=== PATIENT | male | born 1960 | race Caucasian/White ===

== ENCOUNTER 2018-04-27 14:07 | Observation (INO) ==
[2018-04-27] MEDS ORDERED: ONDANSETRON 4 MG/2 ML VIAL IV PRN (16:07)
[2018-04-27] MEDS ORDERED: ACETAMINOPHEN 325 MG TABLET PO PRN (16:07)
[2018-04-27 17:00] LABS: Basophils % 0.4 % (0.0-0.8); Eosinophils # 0.3 10*3/uL (0.0-0.87); Eosinophils % 2.5 % (0.00-10.9); Hematocrit 46.5 VOL% (42.0-52.0); Hemoglobin 16.4 GM/DL (14.0-18.0); Immature Granulocytes % 0.4 %; Immature Granulocytes Absolute 0.04 #; Lymphocytes # 1.8 10*3/uL (1.4-4.0); Lymphocytes % 18.1 % (21.2-54.2); Mean Corpuscular HGB Conc 35.3 GM/DL (32-36); Mean Corpuscular Hemoglobin 32 PG (27-34); Mean Corpuscular Volume 91.7 FL (87-102); Monocytes # 0.7 10*3/uL (0.11-0.8); Monocytes % 6.7 % (1.7-12.7); Neutrophils # 7.1 10*3/uL (1.4-7.4); Neutrophils % 71.9 % (38.7-73.9); Platelet Count 225 T/CUMM (130-400); Red Blood Count 5.07 MC/CUMM (3.8-5.5); Red Cell Distribution Width 13.1 % (9.3-17.3); White Blood Count 9.9 T/CUMM (4-12)
[2018-04-27] MEDS: RIVAROXABAN 20 MG TABLET PO SCH (17:22)
[2018-04-27] MEDS: methylPREDNISolone SOD SUC 125 MG/2 ML VIAL IV SCH ×2 (17:23→22:30)
[2018-04-27 17:30] LABS: Albumin 3.9 G/DL (3.4-5.0); Bilirubin,Total 0.9 MG/DL (0.2-1.0); Calcium 9.4 MG/DL (8.5-10.1); Osmolality,Calculated 281.3 MOS/KG (273-304); Potassium 4.5 MMOL/L (3.5-5.1); Total Protein 7.8 G/DL (6.4-8.3)
[2018-04-27] MEDS ORDERED: ALBUTEROL 2.5 MG/3 ML NEB RESP TX SCH (19:00)
[2018-04-27] MEDS: LEVALBUTEROL 1.25 MG/3 ML NEB RESP TX SCH (19:22)
[2018-04-27] MEDS ORDERED: MONTELUKAST 10 MG TABLET PO SCH (21:00)
[2018-04-28] MEDS: LEVALBUTEROL 1.25 MG/3 ML NEB RESP TX SCH ×2 (00:58→07:21)
[2018-04-28] MEDS: methylPREDNISolone SOD SUC 125 MG/2 ML VIAL IV SCH ×2 (05:20→10:00)
[2018-04-28 06:35] LABS: Basophils % 0.3 % (0.0-0.8); Hematocrit 46.5 VOL% (42.0-52.0); Hemoglobin 16.1 GM/DL (14.0-18.0); Immature Granulocytes % 0.8 %; Immature Granulocytes Absolute 0.06 #; Lymphocytes # 0.9 10*3/uL (1.4-4.0); Lymphocytes % 11.8 % (21.2-54.2); Mean Corpuscular HGB Conc 34.6 GM/DL (32-36); Mean Corpuscular Hemoglobin 32 PG (27-34); Mean Corpuscular Volume 91.7 FL (87-102); Mean Platelet Volume 9.1 FL (9.6-12.0); Monocytes # 0.1 10*3/uL (0.11-0.8); Monocytes % 0.9 % (1.7-12.7); Neutrophils # 6.5 10*3/uL (1.4-7.4); Neutrophils % 86.2 % (38.7-73.9); Platelet Count 234 T/CUMM (130-400); Red Blood Count 5.07 MC/CUMM (3.8-5.5); Red Cell Distribution Width 13.3 % (9.3-17.3); White Blood Count 7.5 T/CUMM (4-12)
[2018-04-28 07:02] LABS: Albumin 3.8 G/DL (3.4-5.0); Bilirubin,Total 1.1 MG/DL (0.2-1.0); Calcium 9.3 MG/DL (8.5-10.1); Osmolality,Calculated 279.7 MOS/KG (273-304); Potassium 3.9 MMOL/L (3.5-5.1); Thyroid Stimulating Hormone 0.746 uIU/ml (0.358-3.74); Total Protein 7.7 G/DL (6.4-8.3)
[2018-04-28 08:09] VITALS: BP 141/93
[2018-04-28] MEDS ORDERED: PARoxetine 20 MG TABLET PO SCH (09:00)
[2018-04-28] MEDS ORDERED: PANTOPRAZOLE 40 MG TABLET PO SCH (09:00)
[2018-04-28] MEDS ORDERED: cloNIDine 0.1 MG TABLET PO SCH (09:00)
[2018-04-28] MEDS ORDERED: ASPIRIN CHEW 81 MG TABLET PO SCH (09:00)
[2018-04-28] MEDS ORDERED: OLMESARTAN 5 MG TABLET PO SCH (09:00)
[2018-04-28] MEDS ORDERED: VERAPAMIL SR 120 MG TABLET PO SCH (09:00)
[2018-04-28] MEDS ORDERED: Tiotropium Br/Olodaterol Hcl [Stiolto Respimat Inhal Spray] IH SCH (09:00)
[2018-04-28] MEDS ORDERED: amLODIPine 5 MG TABLET PO SCH (09:00)
[2018-04-28] MEDS ORDERED: CHOLECALCIFEROL 5,000 UNIT TABLET PO SCH (09:00)
[2018-04-28] MEDS: RIVAROXABAN 20 MG TABLET PO SCH (09:59)
== END 2018-04-28 10:09 | disposition home or self-care (01) ==
LOC: SUATTDRO 14:57 → INTOOBSV 14:57 → N.2E 14:57
PROVIDERS: ADMIT Internal Medicine; ATTEND Internal Medicine